=== PATIENT | female | born 1985 | race Caucasian/White ===

== ENCOUNTER 2018-07-26 08:12 | Outpatient (CLI) | payer BC ==
--- NOTE | 2018-07-26 09:11 | ULT ---
THYROID ULTRASOUND: INDICATION: Thyroid antibody positive. COMPARISON: None. FINDINGS: Right thyroid lobe measured 4.8 x 1.3 x 1.7 cm. The left thyroid lobe measured 4.5 x 1.2 x 1.7 cm. The thyroid isthmus measures 0.3 cm. No focal thyroid lesion is identified. IMPRESSION: No focal thyroid lesion. Slight heterogeneity of the thyroid parenchyma. POS: C
== END 2018-07-26 08:13 | disposition home or self-care (01) ==
LOC: BICULT 08:12
PROVIDERS: ATTEND Family Medicine
DX: R76.8 Other specified abnormal immunological findings in serum (principal)
CPT/HCPCS: 76536